=== PATIENT | female | born 1955 | race Caucasian/White ===

== ENCOUNTER 2020-01-14 13:07 | Emergency (ER) | payer MEDICARE ==
[~2020-01-14] VITALS: Ht 170.2 cm; Wt 108.9 kg
--- NOTE | 2020-01-14 13:19 | NUR ---
ARRIVAL PT ARRIVED TO ER 6 VIA WHEELCHAIR WITH C/O RIGHT SIDE SHOULDER, HIP, KNEE AND NECK PAIN. PT REPORTS HEADACHE ON THE RIGHT SIDE AND LEFT KNEE PAIN. PT GRIMACING AND TEARFUL DURING TRANSFER FROM WHEELCHAIR TO BED. PT PLACED IN BED WITH BED IN LOW LOCKED POSITION WITH SIDERAILS X2. CALL LIGHT WITHIN REACH. CHILDREN X2 AT BEDSIDE.
[2020-01-14 13:20] VITALS: BP 151/70
[2020-01-14 13:27] VITALS: BP 151/70
--- NOTE | 2020-01-14 13:48 | ER.PDOC ---
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 Timing/Duration: 24 hours Severity: severe Associated Symptoms: denies symptoms Allergies: Coded Allergies: No Known Allergies (Unverified , 01/14/20) Past Medical History Medical History: diabetes, hypertension, renal disease, other (hemangioma right brain) Surgical History: pacemaker/ICD Social History Alcohol Use: none Drug Use: none Review of Systems Constitutional: no symptoms reported EENTM: no symptoms reported Respiratory: no symptoms reported Cardiovascular: no symptoms reported Gastrointestinal: no symptoms reported Musculoskeletal: no symptoms reported Psychiatric/Neurological: see HPI, headache (right), weakness (RUE/RLE), other (pain on all of right side of body) Physical Exam General Appearance: WD/WN, Mild Distress (appears acutely uncomfortable), Obese EENT: eyes nml inspection Neck: Non-Tender, Full Range of Motion Respiratory: chest non-tender, lungs clear, normal breath sounds, no respiratory distress, no accessory muscle use CVS: reg rate & rhythm Gastrointestinal: Normal Bowel Sounds, Non Tender, Soft Extremities: Other (painful ROM RUE and RLE) Neurologic/Psychiatric: No Motor/Sensory Deficits, Alert, Normal Mood/Affect, Oriented x 3, Other (I do not appreciate motor weakness on exam) Skin: Normal Color, Warm/Dry Lymphatic: No Adenopathy Results/Orders Results/Orders Orders - SELAM MANE DO Ct Head Wo Contrast (01/14/20 13:50) Morphine Sulfate (Morphine Sulfate) (01/14/20 13:50) Ondansetron Hcl/Pf (Zofran) (01/14/20 13:50) Saline Lock (01/14/20 13:50) Vital Signs Date Time Temp Pulse Resp B/P (MAP) Pulse Ox O2 Delivery O2 Flow Rate FiO2 01/14/20 14:21 98.7 89 18 137/67 (90) 95 Room Air 01/14/20 13:27 98.7 75 18 151/70 (97) 97 Room Air 01/14/20 13:20 98.7 75 18 97 01/14/20 13:20 98.7 75 18 Administered Medications Medications (Trade) Dose Ordered Sig/Oleg Route PRN Reason Start Time Stop Time Status Last Admin Dose Admin Morphine Sulfate (Morphine Sulfate) 4 mg STAT STAT IV 01/14/20 13:50 01/14/20 13:51 UNV 01/14/20 14:09 4 MG Ondansetron HCl (Zofran) 4 mg STAT STAT IV 01/14/20 13:50 01/14/20 13:51 UNV 01/14/20 14:09 4 MG EKG/XRAY/CT/US CT Comments: no acute findings Course Vitals & review Data Vital Sign - Last 24 Hours 01/14/20 01/14/20 01/14/20 01/14/20 13:20 13:20 13:27 14:21 Temp 98.7 98.7 98.7 98.7 Pulse 75 75 75 89 Resp 18 18 18 18 B/P (MAP) 151/70 (97) 137/67 (90) Pulse Ox 97 97 95 O2 Delivery Room Air Room Air Current Medications Medications (Trade) Dose Ordered Sig/Oleg PRN Reason Start Time Stop Time Status Last Admin Morphine Sulfate (Morphine Sulfate) 4 mg STAT STAT 01/14/20 13:50 01/14/20 13:51 UNV 01/14/20 14:09 Ondansetron HCl (Zofran) 4 mg STAT STAT 01/14/20 13:50 01/14/20 13:51 UNV 01/14/20 14:09 O2 Sat by Pulse Oximetry: 97 Departure Time of Disposition: 14:33 Disposition: 01 HOME, SELF-CARE Impression: Primary Impression: Chronic pain disorder Condition: Improved Patient Instructions: Chronic Pain Management Referrals: PCP,UNKNOWN (PCP) PRIMARY CARE PROVIDER Additional Instructions: Rest. Ice to areas of pain 15 min/hour. Take your routine medications as prescribed. Take the flexeril only in the daytime--do not take with tizanidine at night. Return to ER if symptoms worsen or for any emergent concerns. Duration or Time Spent with Pa: 20 min SELAM MANE DO Jan 14, 2020 13:48
[2020-01-14] MEDS ORDERED: ZOFRAN IV STA (13:50)
[2020-01-14] MEDS ORDERED: MORPHINE SULFATE IV STA (13:50)
[2020-01-14] MEDS ORDERED: ZOFRAN ONE (13:55)
[2020-01-14] MEDS ORDERED: MORPHINE SULFATE ONE (13:55)
[2020-01-14 14:21] VITALS: BP 137/67
--- NOTE | 2020-01-14 14:21 | NUR ---
CT PT BACK FROM CT. PT ASSITED BACK TO BED, BEDSIDE MONITORS APPLIED. VITAL SIGNS STABLE. PT DENIES ANY PAIN RELIEF FROM MORPHINE. PAIN LEVEL REPORTED TO DR MANE.
--- NOTE | 2020-01-14 14:26 | DIREP ---
PROCEDURE:CT HEAD OR BRAIN W/O CONTRAST COMPARISON:None. INDICATIONS:severe headache TECHNIQUE:CT images were created without intravenous contrast. FINDINGS: VENTRICLES:The ventricles are normal in size and configuration. CEREBRUM:Normal cerebral morphology with appropriate garcias white matter differentiation. CEREBELLUM:Negative. BRAINSTEM:Negative. BASAL CISTERNS:Negative. HEMORRHAGE:No MASS LESION:No ACUTE INFARCT:No SKULL:Normal. SINUSES:Normal. OTHER:None CONCLUSION:No acute intracranial process demonstrated Dictated by: Nat Galvan M.D. on 01/14/2020 at 02:23 PM
== END 2020-01-14 14:50 | disposition home or self-care (01) ==
LOC: ER 13:07
DX: G89.29 Other chronic pain (principal); R51 Headache; E11.9 Type 2 diabetes mellitus without complications; I10 Essential (primary) hypertension; Z79.899 Other long term (current) drug therapy; Z95.0 Presence of cardiac pacemaker
CPT/HCPCS: 70450; 96374; 96375; 99284; J2270; J2405